=== PATIENT | female | born 1960 | race African-American/Black ===

== ENCOUNTER 2017-04-26 10:48 | Emergency (ER) | payer MEDICARE, OTHER ==
[~2017-04-26] VITALS: Ht 172.7 cm; Wt 76.0 kg
[~2017-04-26 10:48] MED LIST: COLA100C3 PO; HYDR12.57 PO; LITH300T3 PO; RANI150T PO; SERO300T PO; ZOLO100T PO
[2017-04-26 10:49] VITALS: BP 136/87; PULSE 71; RESP 16; TEMP 98.2; O2SAT 98
[2017-04-26] MEDS ORDERED: MEDR4PAK PO (11:24)
[2017-04-26] MEDS ORDERED: TRIA.025%T TOPICAL (11:24)
--- NOTE | 2017-04-26 11:24 | PD ---
HPI Chief Complaint: Skin Problem Time Seen by Provider: 11:10 Travel History International Travel<30 days: No Contact w/Intl Traveler<30days: No Traveled to known affect area: No History of Present Illness HPI Patient is a 56-year-old female presenting to emergency evaluation of a rash to her arms and legs. She states it's itchy and has been ongoing for 2 weeks. She denies any fever, chills, new soaps or detergents, wheezing, shortness of breath or chest pain. She denies any new food. PFSH Past Medical History Arthritis: No Asthma: Yes Autoimmune Disease: No Blood Disorders: No Bipolar Disorder: Yes Anxiety: Yes Depression: Yes Heart Rhythm Problems: No Cancer: No Cardiovascular Problems: Yes (htn) High Cholesterol: No Chemotherapy: No Chest Pain: No Congestive Heart Failure: Yes COPD: No Cerebrovascular Accident: No Diabetes: No Diminished Hearing: No Diverticulitis: Yes Endocrine: No GERD: Yes Glaucoma: No Genitourinary: No Headaches: No Hepatitis: No Hiatal Hernia: Yes Hypertension: No Immune Disorder: No Kidney Stones: No Musculoskeletal: No Neurologic: No Psychiatric: Yes Respiratory: Yes Immunizations Current: Yes Myocardial Infarction: No Radiation Therapy: No Renal Failure: No Schizophrenia: Yes (SCHIZOEFFECTIVE) Seizures: No Sickle Cell Disease: No Sleep Apnea: No Thyroid Disease: No Ulcer: No PNEUMOCCOCAL Vaccine (Year): 3 Menopausal: Yes : 3 Para: 3 Tubal Ligation: Yes (1982) Past Surgical History Abdominal Surgery: No AICD: No Cardiac Surgery: No Ear Surgery: No Endocrine Surgery: No Eye Surgery: No Genitourinary Surgery: No Gynecologic Surgery: Yes (3 CYST REMOVALS OF LEFT BREAST 2007) Joint Replacement: No Oral Surgery: No Pacemaker: No Thoracic Surgery: No Social History Alcohol Use: Yes (BEER DAILY) Tobacco Use: Yes (2 PK/DAY) Substance Use: Yes (SMOKES CRACK COCAINE) Allergies-Medications (Allergen,Severity, Reaction): Coded Allergies: No Known Allergies (Verified , 04/26/17) Reported Meds & Prescriptions Reported Meds & Active Scripts Active Reported Hydrochlorothiazide 12.5 Mg Cap 12.5 Mg PO DAILY Seroquel (Quetiapine Fumarate) 300 Mg Tab 300 Mg PO HS [place] Carbonate 300 Mg Tab 300 Mg PO HS Colace (Docusate Sodium) 100 Mg Cap 100 Mg PO EVERY OTHER DAY Ranitidine (Ranitidine HCl) 150 Mg Tab 150 Mg PO DAILY Zoloft (Sertraline HCl) 100 Mg Tab 100 Mg PO DAILY Review of Systems Except as stated in HPI: all other systems reviewed are Neg Skin: Positive Rash, Positive Itching, Positive Dryness Physical Exam Narrative GENERAL: Well-nourished, well-developed patient. SKIN: Focused skin assessment warm/dry. Macular rash to posterior bilateral arms and legs. No erythema, induration, aches edema noted. Skin is dry appearing. HEAD: Normocephalic. EYES: No scleral icterus. No injection or drainage. NECK: Supple, trachea midline. No JVD or lymphadenopathy. CARDIOVASCULAR: Regular rate and rhythm without murmurs, gallops, or rubs. RESPIRATORY: Breath sounds equal bilaterally. No accessory muscle use. GASTROINTESTINAL: Abdomen soft, non-tender, nondistended. MUSCULOSKELETAL: No cyanosis, or edema. BACK: Nontender without obvious deformity. No CVA tenderness. Data Data Last Documented VS Vital Signs Date Time Temp Pulse Resp B/P Pulse Ox O2 Delivery O2 Flow Rate FiO2 04/26/17 10:49 98.2 71 16 136/87 98 [facility] Medical Decision Making Medical Screen Exam Complete: Yes Emergency Medical Condition: Yes Interpretation(s) Vital Signs Date Time Temp Pulse Resp B/P Pulse Ox O2 Delivery O2 Flow Rate FiO2 04/26/17 10:49 98.2 71 16 136/87 98 Differential Diagnosis Contact dermatitis versus allergic reaction versus eczema versus other Narrative Course Patient is a 56-year-old female presenting to emergency evaluation of rash or arms and legs for the last 2 weeks. Patient's skin is dry, rashes appear consistent with scabies. Patient with the provided with a prescription for a Medrol Dosepak and triamcinolone cream. She has an appointment with her primary doctor on May 03. She is advised to keep this appointment. She was encouraged to maintain adequate fluid intake, apply a lotion such as Eucerin cream after bathing. She was advised to return to emergency department for any new or worsening symptoms. Patient verbalized understanding of these instructions. Patient is stable for discharge. Diagnosis Primary Impression: Dermatitis Referrals: Primary Care Physician 1 week Patient Instructions: Dermatitis (ED), General Instructions Additional Instructions: Follow-up with her primary doctor for reevaluation as scheduled on May 03 Take medications as directed Apply hypoallergenic moisturizer such as Eucerin cream after bathing Maintain adequate fluid intake Return to emergency department for any new or worsening symptoms Med/Other Pt SpecificInfo: Prescription(s) given Scripts Methylprednisolone Dosepak (Medrol Dosepak)4 Mg Dspk4 Mg PO DIRECTED #1 DSPK Ref 0 Per Pharmacist direction Prov:Taryn Nieto 04/26/17 Triamcinolone Topical 0.025% Cream1 Applic TOPICAL BID PRN (ITCHING) #60 GM Ref 0 Prov:Taryn Nieto 04/26/17 Disposition: 01 DISCHARGE HOME Condition: Stable Taryn Nieto April 26, 2017 11:24
[2017-05-17] MEDS ORDERED: TRIA.025%T TOPICAL (10:45)
[2017-05-17] MEDS ORDERED: OMEP40CA2 PO (10:59)
== END 2017-04-26 12:03 | disposition home or self-care (01) ==
LOC: NEPK 10:48
DX: L30.9 Dermatitis, unspecified (principal)
CPT/HCPCS: 99284

== ENCOUNTER 2018-03-11 22:14 | Emergency (ER) | payer MEDICARE, OTHER ==
[~2018-03-11] VITALS: Ht 172.7 cm; Wt 76.0 kg
[~2018-03-11 22:14] MED LIST changes: +AMLO5TAB2 PO; +BLOOD PRESSURE1 M20; -COLA100C3 PO; +MOBI7.5T PO; +OMEP40CA2 PO; -RANI150T PO; +TRIA.025%T TOPICAL
[2018-03-11] MEDS ORDERED: IOHEXOL 350 MG/ML 10 ML VIAL (for RAD DIAG) IVCONTRAST ONE (22:15)
[2018-03-11] MEDS ORDERED: SODIUM CHLORIDE 0.9% FLUSH 10 ML FLUSH IV FLUSH PRN (22:30)
[2018-03-11] MEDS ORDERED: ONDANSETRON HCL 4 MG/2 ML VIAL IVP ONE (22:30)
[2018-03-11] MEDS ORDERED: LIDOCAINE VISCOUS 2% SOLN 15 ML UDC PO ONE (22:30)
[2018-03-11] MEDS ORDERED: SODIUM CHLOR 0.9% 1000 ML INJ 1,000 ML IV SCH (22:30)
[2018-03-11] MEDS ORDERED: ALUMINUM/MAGNESIUM/SIMETH 30 ML CUP PO ONE (22:30)
[2018-03-11 22:33] VITALS: BP 177/94; PULSE 75; RESP 20; TEMP 98; O2SAT 99
[2018-03-11 22:43] VITALS: BP 175/94; PULSE 84; RESP 20; TEMP 98.2; O2SAT 98
--- NOTE | 2018-03-11 23:00 | RADRPT ---
EXAM DATE/TIME: 03/11/2018 22:47 [facility] COMPARISON: No previous studies available for comparison. INDICATIONS : Chest pain. MEDICAL HISTORY : Unobtainable. SURGICAL HISTORY : Unobtainable. ENCOUNTER: Initial ACUITY: 1 day PAIN SCORE: Non-responsive. LOCATION: chest FINDINGS: A single view of the chest demonstrates the lungs to be symmetrically aerated without evidence of mas s, infiltrate or effusion. The cardiomediastinal contours are unremarkable. Osseous structures are intact. CONCLUSION: Normal one view chest x-ray. Brayden Leslie MD on March 11, 2018 at 22:57 Board Certified Radiologist. This report was verified electronically.
[2018-03-11 23:10] LABS: AUTOMATED NEUTROPHIL # 3.4 TH/MM3 (1.8-7.7); BASOPHIL # 0.1 TH/MM3 (0-0.2); BASOPHIL % 0.8 % (0.0-2.0); EOSINOPHIL # 0.1 TH/MM3 (0-0.4); EOSINOPHIL % 1.2 % (0.0-4.0); HEMATOCRIT 42.6 % (35.0-46.0); HEMOGLOBIN 14.6 GM/DL (11.6-15.3); LYMPH % 38.2 % (9.0-44.0); LYMPHOCYTE # 2.6 TH/MM3 (1.0-4.8); MEAN CELL VOLUME 84.6 FL (80.0-100.0); MEAN CORPUSCULAR HEMOGLOBIN 28.9 PG (27.0-34.0); MEAN CORPUSCULAR HGB CONC 34.2 % (32.0-36.0); MEAN PLATELET VOLUME 8.3 FL (7.0-11.0); MONO % 9.2 % (0.0-8.0); MONOCYTE # 0.6 TH/MM3 (0-0.9); NEUT % 50.6 % (16.0-70.0); PLATELET COUNT 277 TH/MM3 (150-450); RED BLOOD COUNT 5.04 MIL/MM3 (4.00-5.30); RED CELL DISTRIBUTION WIDTH 14.9 % (11.6-17.2); WHITE BLOOD COUNT 6.7 TH/MM3 (4.0-11.0)
[2018-03-11 23:41] LABS: ALBUMIN 3.6 GM/DL (3.4-5.0); ALT (GPT) 29 U/L (10-53); AST (GOT) 19 U/L (15-37); BICARBONATE 24.4 MEQ/L (21.0-32.0); BLOOD UREA NITROGEN 8 MG/DL (7-18); CALCIUM 9.1 MG/DL (8.5-10.1); CHLORIDE 106 MEQ/L (98-107); CREATININE 0.81 MG/DL (0.50-1.00); GLOMERULAR FILTRATION RATE 88 ML/MIN (>89); GLUCOSE,RANDOM 88 MG/DL (74-106); SODIUM (NA) 139 MEQ/L (136-145)
[2018-03-11 23:43] LABS: ALKALINE PHOSPHATASE 76 U/L (45-117); TOTAL BILIRUBIN ADULT 0.2 MG/DL (0.2-1.0); TOTAL PROTEIN 7.6 GM/DL (6.4-8.2)
[2018-03-12 00:06] VITALS: BP 182/96; PULSE 86; RESP 20; O2SAT 98
--- NOTE | 2018-03-12 00:44 | PD ---
HPI Chief Complaint: Chest Pain Time Seen by Provider: 22:30 Travel History International Travel<30 days: No Contact w/Intl Traveler<30days: No Traveled to known affect area: No History of Present Illness HPI 57-year-old female arrives with 30 minutes of chest pain which started in the right lower back and radiated to the right upper abdomen. The onset was sudden while the patient was at rest. Initially the pain was 10/10. Patient reports that similar events have occurred numerous times over the typically resolve somewhat quickly. The onset occurred while patient was coughing. Normally anti -gas medication helps however did not this time. No vomiting or fever. No shortness of breath. PFSH Past Medical History Arthritis: No Asthma: Yes Autoimmune Disease: No Blood Disorders: No Bipolar Disorder: Yes Anxiety: Yes Depression: Yes Heart Rhythm Problems: No Cancer: No Cardiovascular Problems: Yes (htn) High Cholesterol: No Chemotherapy: No Chest Pain: No Congestive Heart Failure: Yes COPD: No Cerebrovascular Accident: No Diabetes: No Diminished Hearing: No Diverticulitis: Yes Endocrine: No Gastrointestinal Disorders: No GERD: Yes Glaucoma: No Genitourinary: No Headaches: No Hepatitis: No Hiatal Hernia: Yes Hypertension: No Immune Disorder: No Kidney Stones: No Musculoskeletal: No Neurologic: No Psychiatric: Yes Respiratory: Yes Immunizations Current: Yes Myocardial Infarction: No Radiation Therapy: No Renal Failure: No Schizophrenia: Yes (SCHIZOEFFECTIVE) Seizures: No Sickle Cell Disease: No Sleep Apnea: No Thyroid Disease: No Ulcer: No Tetanus Vaccination: > 5 Years Influenza Vaccination: No PNEUMOCCOCAL Vaccine (Year): 3 ?: Not Menopausal: Yes : 3 Para: 3 Tubal Ligation: Yes (1982) Past Surgical History Abdominal Surgery: No AICD: No Cardiac Surgery: No Ear Surgery: No Endocrine Surgery: No Eye Surgery: No Genitourinary Surgery: No Gynecologic Surgery: Yes (3 CYST REMOVALS OF LEFT BREAST 2007) Joint Replacement: No Neurologic Surgery: No Oral Surgery: No Pacemaker: No Thoracic Surgery: No Other Surgery: No Social History Alcohol Use: Yes (BEER DAILY) Tobacco Use: Yes (2 PK/DAY) Substance Use: Yes (SMOKES CRACK COCAINE) Allergies-Medications (Allergen,Severity, Reaction): Coded Allergies: No Known Allergies (Verified Adverse Reaction, Unknown, 03/11/18) Reported Meds & Prescriptions Reported Meds & Active Scripts Active Hydrochlorothiazide 12.5 Mg Cap 12.5 Mg PO DAILY Omeprazole 40 Mg Cap 40 Mg PO DAILY Mobic (Meloxicam) 7.5 Mg Tab 7.5 Mg PO DAILY Amlodipine (Amlodipine Besylate) 5 Mg Tab 5 Mg PO DAILY Blood Pressure Kit/Arm Cuff 1 Mis Mis Ea .ROUTE DIRECTED Reported Seroquel (Quetiapine Fumarate) 300 Mg Tab 300 Mg PO HS [place] Carbonate 300 Mg Tab 300 Mg PO HS Zoloft (Sertraline HCl) 100 Mg Tab 100 Mg PO DAILY Review of Systems Except as stated in HPI: all other systems reviewed are Neg Physical Exam Narrative GENERAL: 57-year-old female pleasant well-nourished well-developed mild distress Vital Signs Date Time Temp Pulse Resp B/P (MAP) Pulse Ox O2 Delivery O2 Flow Rate FiO2 03/12/18 00:06 86 20 182/96 (124) 98 Room Air 03/11/18 22:43 98.2 84 20 175/94 (121) 98 Room Air 03/11/18 22:33 20 03/11/18 22:33 98.0 75 20 177/94 (121) 99 SKIN: Warm and dry. HEAD: Atraumatic. Normocephalic. EYES: Pupils equal and round. No scleral icterus. No injection or drainage. ENT: No nasal bleeding or discharge. Mucous membranes pink and moist. NECK: Trachea midline. No JVD. CARDIOVASCULAR: Regular rate and rhythm. RESPIRATORY: No accessory muscle use. Clear to auscultation. Breath sounds equal bilaterally. GASTROINTESTINAL: Minimal tenderness in the right upper quadrant. Abdomen otherwise soft. MUSCULOSKELETAL: Extremities without clubbing, cyanosis, or edema. No obvious deformities. NEUROLOGICAL: Awake and alert. No obvious cranial nerve deficits. Motor grossly within normal limits. Five out of 5 muscle strength in the arms and legs. Normal speech. PSYCHIATRIC: Appropriate mood and affect; insight and judgment normal. Data Data Last Documented VS Vital Signs Date Time Temp Pulse Resp B/P (MAP) Pulse Ox O2 Delivery O2 Flow Rate FiO2 03/12/18 02:50 03/12/18 00:06 86 20 98 Room Air 03/11/18 22:43 98.2 Orders Orders Complete Blood Count With Diff (03/11/18 22:30) Comprehensive Metabolic Panel (03/11/18 22:30) Lipase (03/11/18 22:30) Iv Access Insert/Monitor (03/11/18 22:30) Ecg Monitoring (03/11/18 22:30) Oximetry (03/11/18 22:30) Ondansetron Inj (Zofran Inj) (03/11/18 22:30) Sodium Chlor 0.9% 1000 Ml Inj (Ns 1000 M (03/11/18 22:30) Sodium Chloride 0.9% Flush (Ns Flush) (03/11/18 22:30) Electrocardiogram (03/11/18 22:30) Chest, Single Ap (03/11/18 22:30) Al-Mag Hy-Si 40-40-4 Mg/Ml Liq (Mag-Al P (03/11/18 22:30) Lidocaine 2% Viscous (Xylocaine 2% Visco (03/11/18 22:30) Ct Abd/Pel W Iv Contrast(Rout) (03/11/18 22:30) Iohexol 350 Inj (Omnipaque 350 Inj) (03/11/18 22:15) Ed Discharge Order (03/12/18 02:25) Potassium Chloride (Kcl) (03/12/18 02:30) Labs Laboratory Tests Test 03/11/18 22:40 White Blood Count 6.7 TH/MM3 Red Blood Count 5.04 MIL/MM3 Hemoglobin 14.6 GM/DL Hematocrit 42.6 % Mean Corpuscular Volume 84.6 FL Mean Corpuscular Hemoglobin 28.9 PG Mean Corpuscular Hemoglobin Concent 34.2 % Red Cell Distribution Width 14.9 % Platelet Count 277 TH/MM3 Mean Platelet Volume 8.3 FL Neutrophils (%) (Auto) 50.6 % Lymphocytes (%) (Auto) 38.2 % Monocytes (%) (Auto) 9.2 % Eosinophils (%) (Auto) 1.2 % Basophils (%) (Auto) 0.8 % Neutrophils # (Auto) 3.4 TH/MM3 Lymphocytes # (Auto) 2.6 TH/MM3 Monocytes # (Auto) 0.6 TH/MM3 Eosinophils # (Auto) 0.1 TH/MM3 Basophils # (Auto) 0.1 TH/MM3 CBC Comment DIFF FINAL Differential Comment Blood Urea Nitrogen 8 MG/DL Creatinine 0.81 MG/DL Random Glucose 88 MG/DL Total Protein 7.6 GM/DL Albumin 3.6 GM/DL Calcium Level 9.1 MG/DL Alkaline Phosphatase 76 U/L Aspartate Amino Transf (AST/SGOT) 19 U/L Alanine Aminotransferase (ALT/SGPT) 29 U/L Total Bilirubin 0.2 MG/DL Sodium Level 139 MEQ/L Potassium Level 3.2 MEQ/L Chloride Level 106 MEQ/L Carbon Dioxide Level 24.4 MEQ/L Anion Gap 9 MEQ/L Estimat Glomerular Filtration Rate 88 ML/MIN Lipase 193 U/L MDM Medical Decision Making Medical Screen Exam Complete: Yes Emergency Medical Condition: Yes Medical Record Reviewed: Yes Differential Diagnosis Constipation, Gastritis, Acute Cholecystitis, Biliary Colic, Pancreatitis, RAMEY , Hepatitis, Bowel Obstruction, Cystitis, Mesenteric Ischemia, AAA, Appendicitis , Renal Stone/Hydronephrosis, GERD, perforated viscous Narrative Course CBC & BMP Diagram 03/11/18 22:40 Total Protein 7.6, Albumin 3.6, Calcium Level 9.1, Alkaline Phosphatase 76, Aspartate Amino Transf (AST/SGOT) 19, Alanine Aminotransferase (ALT/SGPT) 29, Total Bilirubin 0.2 Last Impressions Chest X-Ray 03/11/182229 Signed Impressions: Service Date/Time: Sunday, March 11, 2018 22:47 - CONCLUSION: Normal one view chest x-ray. Brayden Leslie MD Abdomen/Pelvis CT 03/11/182229 Signed Impressions: Service Date/Time: Monday, March 12, 2018 01:35 - CONCLUSION: 1. No evidence of acute abdominal or pelvic process. No masses are identified. 2. Uterine fibroids Armond Coronado MD Patient has been ambulatory in the ER without difficulty. Results discussed at bedside to the patient's satisfaction. Follow-up with primary care provider. Etiology of right upper quadrant pain is indeterminant with consideration given to pleurisy and/or fatty liver disease potentially constipation or pain related to bowel gas. Diagnosis Primary Impression: RUQ pain Additional Impression: Hypokalemia Referrals: Primary Care Physician 2 days Med/Other Pt SpecificInfo: Prescription(s) given Disposition: DISCHARGE HOME Condition: Stable Ilir Poole MD Mar 12, 2018 00:43
--- NOTE | 2018-03-12 02:11 | RADRPT ---
EXAM DATE/TIME: 03/12/2018 01:35 [facility] COMPARISON: No previous studies available for comparison. INDICATIONS : Right upper qaudrant and back pain. IV CONTRAST: 96 cc Omnipaque 350 (iohexol) IV ORAL CONTRAST: No oral contrast ingested. RADIATION DOSE: 7.99 CTDIvol (mGy) MEDICAL HISTORY : Cardiovascular disease. Diverticulitis. Gastroesophageal reflux disease.Hiatal hernia SURGICAL HISTORY : Tubal ligation. ENCOUNTER: Initial ACUITY: 1 day PAIN SCALE: 6/10 LOCATION: Right upper quadrant back TECHNIQUE: Volumetric scanning of the abdomen and pelvis was performed. Using automated exposure control and ad justment of the mA and/or kV according to patient size, radiation dose was kept as low as reasonably achievable to obtain optimal diagnostic quality images. DICOM format image data is available electro nically for review and comparison. FINDINGS: Examination of the lung bases demonstrates no abnormality. No pleural fluid is identified. No pulmona ry nodules are present. The liver and spleen are free of focal defects. The gallbladder and pancreas demonstrate no abnormality. The adrenal glands are normal. The kidneys demonstrate no evidence of linda id renal mass or hydronephrosis. No free fluid or abdominal masses are identified. No para-aortic edvin nopathy is seen. Examination of the right lower quadrant demonstrates no abnormality. The appendix is identified and appears normal. Examination of the pelvis demonstrates no evidence of free fluid or pelvic mass. No abnormally enlarg ed inguinal or retroperitoneal lymph nodes are present. The bladder is unremarkable. The uterus has a irregular contour characteristic of fibroids the largest measuring 2 cm. CONCLUSION: 1. No evidence of acute abdominal or pelvic process. No masses are identified. 2. Uterine fibroids Armond Coronado MD on March 12, 2018 at 2:03 Board Certified Radiologist. This report was verified electronically.
[2018-03-12] MEDS ORDERED: POTASSIUM CHLORIDE 20 MEQ CONTROLLED RELEASE TAB PO ONE (02:30)
--- NOTE | 2018-03-12 14:28 | EKG ---
Date Performed: 03/11/2018 Time Performed: 23:05:47 PTAGE: 57 years EKG: Sinus rhythm SEPTAL MYOCARDIAL INFARCTION ABNORMAL ECG Since PREVIOUS TRACING , no significant change noted PREVIOUS TRACIN12/26/2011 13.48 DOCTOR: Laura Worrell Interpretating Date/Time 03/12/2018 14:26:44
== END 2018-03-12 03:16 | disposition home or self-care (01) ==
LOC: NEPC 22:14
DX: R10.11 Right upper quadrant pain (principal); E87.6 Hypokalemia; I11.0 Hypertensive heart disease with heart failure; I50.9 Heart failure, unspecified; K21.9 Gastro-esophageal reflux disease without esophagitis; F17.200 Nicotine dependence, unspecified, uncomplicated; F20.9 Schizophrenia, unspecified; F31.9 Bipolar disorder, unspecified
CPT/HCPCS: 71045; 74177; 80053; 83690; 85025; 93005; 96361; 96374; 99285; J2405; J7030; Q9967